=== PATIENT | female | born 1980 | race Caucasian/White ===

== ENCOUNTER 2021-10-15 05:59 | Inpatient (IN) | payer OTHER ==
[~2021-10-15] VITALS: Ht 160 cm; Wt 84.0 kg
[~2021-10-15 05:59] MED LIST: METH10; TIZA4; ZIPR40; ZOLP10
--- NOTE | 2021-10-15 06:49 | NUR ---
POWERGLIDE PLACEMENT THIS RN CALLED BY NURSING TRUCK GUARD TO ASSIST IN DAY SURGERY WITH A POWERGLIDE INSERTION. PT IS PLEASANT AND COOPERATIVE, STATES "LAST TIME IT TOOK THEM 9 TRIES TO GET AN IV IN". 20 G X 8 CM PLACED TO LEFT UPPER ARM WITHOUT DIFFICULTY, [facility] PER KIRAN TOLEDO. TEGADERM CHG IN PLACE.
[2021-10-15] MEDS ORDERED: Vitamin D1000 UNI1 (07:13)
[2021-10-15] MEDS ORDERED: CENTRUM SILVER1 EAC2 (07:14)
--- NOTE | 2021-10-15 07:49 | NUR ---
TO [facility] CONFIRMED SURGERY AND SURGEON. NPO. LUNGS CLEAR. PRE OP TEACHING DONE
--- NOTE | 2021-10-15 14:16 | NUR ---
NO ACUTE CHANGES SINCE ARRIVING TO UNIT FROM PACU PT'S PAIN WAS NOT CONTROLLED W/PO PAIN MEDS. [employer]ED [employer] PER ORDERS AND PT NOW REPORTS PAIN TOLERABLE. TOLERATING SMALL AMOUNTS PO; MEDICATED ONCE FOR NAUSEA. VSS. REPORT GIVEN AND CARE TURNED OVER TO PASTOR Denny RN.
[2021-10-16 05:50] LABS: BASOPHILS ABSOLUTE AUTO 0.02 K/mm3 (0.00-0.23); BASOPHILS PERCENT AUTO 0 % (0-2); EOSINOPHILS ABSOLUTE AUTO 0.03 K/mm3 (0.00-0.68); EOSINOPHILS PERCENT AUTO 0 % (0-6); Hematocrit 35.9 % (33.0-51.0); Hemoglobin 11.8 g/dL (11.5-16.0); IMMATURE GRAN ABSOLUTE AUTO 0.03 K/mm3 (0.00-0.10); IMMATURE GRAN PERCENT AUTO 0 % (0-1); LYMPHOCYTES ABSOLUTE AUTO 2.38 K/mm3 (0.84-5.20); LYMPHOCYTES PERCENT AUTO 18 % (21-46); MONOCYTES ABSOLUTE AUTO 0.92 K/mm3 (0.16-1.47); MONOCYTES PERCENT AUTO 7 % (4-13); Mean Corpuscular HGB 28.6 pg (26.0-34.0); Mean Corpuscular HGB Conc 32.9 g/dL (31.5-36.5); Mean Corpuscular Volume 87 fL (80-100); Mean Platelet Volume 8.6 fL (9.1-12.4); NEUTROPHILS ABSOLUTE AUTO 9.68 K/mm3 (1.96-9.15); NEUTROPHILS PERCENT AUTO 74 % (41-73); Platelet Count 385 K/mm3 (150-400); RDW Coefficient Variation 13.4 % (11.7-14.2); RDW Standard Deviation 42.9 fL (35.1-46.3); Red Blood Cell Count 4.13 M/mm3 (3.80-5.20); White Blood Cell Count 13.06 K/mm3 (4.00-11.30)
[2021-10-16] MEDS ORDERED: Percocet 5-3251 EACH PO (09:57)
[2021-10-16] MEDS ORDERED: MOTRIN IB200 MG PO (09:58)
--- NOTE | 2021-10-16 12:31 | NUR ---
10/16/21 1231 Misty Hart VERIFICATIONS: EDIT CHART.
--- NOTE | 2021-10-16 13:56 | NUR ---
DISCHARGE NOTE: PATIENT AND PATIENTS MOTHER WERE EDUCATED ON DISCHARGE INSTRUCTIONS. BOTH VERBALIZED UNDERSTANDING OF DISCHARGE INFORMATION. EARLIER IN THE DAY THE MOTHER WAS ABLE TO GET THE HARD PERSCRIPTION FILLED OUT. PAIN IS MANAGED WITH PO PAIN MEDICATION. PATIENTS TRANSVERSE INCISION SITE HAS STERI STRIPS THAT ARE C/D/I. SHE IS TOLERATING PO INTAKE AND IS VOIDING WELL PASSING GAS. SHE IS A SBA AND IS ABLE TO AMBULATE IN THE HALLWAYS. PATIENT HAS PERSONAL ITEMS GATHERED AND IS DRESSED. SHE WAS WHEELCHAIRED OUT TO HER MOTHERS CAR TO BE TAKEN HOME. IV WAS TAKEN OUT AND WNL.
== END 2021-10-16 13:50 | disposition home or self-care (01) | DRG 743 ==
LOC: SURS 05:59 → PRE IP 07:30 → SURS 10:11
PROVIDERS: ADMIT Obstetrics & Gynecology
PROC: 0UT20ZZ Resection of Bilateral Ovaries, Open Approach (ICD-10-PCS; 2021-10-15)
PROC: 0UT70ZZ Resection of Bilateral Fallopian Tubes, Open Approach (ICD-10-PCS; 2021-10-15)
PROC: 0UT90ZL Resection of Uterus, Supracervical, Open Approach (ICD-10-PCS; principal; 2021-10-15 07:30)
DX: D25.9 Leiomyoma of uterus, unspecified (principal); N85.2 Hypertrophy of uterus; Z79.899 Other long term (current) drug therapy
CPT/HCPCS: 85025; 86850; 86900; 86901; 88307; 94760; A9270; J0690; J1885; J2405; J3010; J7040; J7120